=== PATIENT | female | born 1995 | race Caucasian/White ===

== ENCOUNTER → 2017-08-04 | Outpatient (CLI) | payer BC ==
[~2017-08-04] MED LIST: ETON68IM SQ; MONT10TA PO
[2017-08-04 10:12] LABS: PLATELET COUNT, AUTOMATED 205 K/uL (150-450)
== END ==
LOC: LAB 09:49
PROVIDERS: ATTEND Internal Medicine
DX: F41.9 Anxiety disorder, unspecified (principal); L65.9 Nonscarring hair loss, unspecified; R63.4 Abnormal weight loss
CPT/HCPCS: 36415; 81001; 82040; 82247; 82310; 82374; 82435; 82565; 82607; 82728; 82746; 82947; 83540; 83550; 84075; 84132; 84155; 84295; 84443; 84450; 84460; 84520; 85025